=== PATIENT | female | born 1990 | race Caucasian/White ===

== ENCOUNTER 2017-05-19 08:14 | Emergency (ER) | payer SELFPAY ==
[~2017-05-19 08:14] MED LIST: PATIENT OWN MED 1 EACH EACH IV PRN; PATIENT OWN MED 1 EACH EACH PO SCH
== END 2017-05-19 09:30 | disposition home or self-care (01) ==
LOC: ED 09:27
DX: Z53.9 Procedure and treatment not carried out, unspecified reason (principal)
CPT/HCPCS: 85025

== ENCOUNTER 2017-06-12 08:59 | Outpatient (CLI) | payer SELFPAY | END 2017-06-16 01:28 | LOC: RAD 08:59 | PROVIDERS: ATTEND Physical Medicine & Rehabilitation | DX: Z53.9 Procedure and treatment not carried out, unspecified reason (principal) ==